=== PATIENT | female | born 1995 | race Caucasian/White ===

== ENCOUNTER 2017-01-16 23:34 | Emergency (ER) | payer MEDICAID ==
[2017-01-16 23:54] VITALS: BP 112/72; PULSE 91; RESP 20; TEMP 98.3; O2SAT 100
--- NOTE | 2017-01-17 00:28 | C.PDOC ---
History Of Present Illness 21 y/o female presents to ED with c/o vaginal discharge and vaginal itching since yesterday. Patient reports history of yeast infection and is requesting diflucan. Denies abdominal pain, dysuria, hematuria, or other associated symptoms. Time Seen by Provider: 01/16/17 23:56 Chief Complaint (Nursing): Female Genitourinary History Per: Patient History/Exam Limitations: no limitations Onset/Duration Of Symptoms: Days Current Symptoms Are (Timing): Still Present Associated Symptoms: denies: Fever, Chills, Vomiting, Urinary Symptoms Recent travel outside of the [place]: No Abnormal Vaginal Bleeding: No Past Medical History Reviewed: Historical Data, Nursing Documentation, Vital Signs Vital Signs: Last Vital Signs Temp 98.3 F 01/16/17 23:51 Pulse 91 H 01/16/17 23:51 Resp 20 01/16/17 23:51 BP 112/72 01/16/17 23:51 Pulse Ox 100 01/17/17 01:23 - Medical History PMH: No Chronic Diseases Family History: States: Unknown Family Hx - Social History Hx Tobacco Use: No Hx Alcohol Use: No Hx Substance Use: No - Immunization History Hx Tetanus Toxoid Vaccination: Yes Hx Influenza Vaccination: No Hx Pneumococcal Vaccination: No Review Of Systems Except As Marked, All Systems Reviewed And Found Negative. Constitutional: Negative for: Fever, Chills Respiratory: Negative for: Cough, Wheezing Gastrointestinal: Negative for: Nausea, Vomiting, Abdominal Pain Genitourinary: Positive for: Vaginal Discharge. Negative for: Dysuria, Hematuria, Pelvic Pain Skin: Negative for: Rash Physical Exam - Physical Exam Appears: Non-toxic, No Acute Distress Skin: Normal Color, Warm, Dry Eye(s): bilateral: Normal Inspection, PERRL Gastrointestinal/Abdominal: Soft, No Tenderness, No Guarding, No Rebound Back: Normal Inspection Pelvic: Vaginal Discharge (thick, white, at vaginal vault), No Cervical Motion Tenderness, No Adnexal Tenderness, Other (vulvar erythema) Extremity: Bilateral: Atraumatic Neurological/Psych: Oriented x3, Normal Speech, Normal Cognition ED Course And Treatment O2 Sat by Pulse Oximetry: 100 (RA) Pulse Ox Interpretation: Normal Progress Note: On reassessment, patient is resting comfortably, and is in no acute distress. Patient instructed to take prescribed medications as directed and to follow up with clinic/PMD within 1-2 days. Disposition Counseled Patient/Family Regarding: Diagnosis, Need For Followup, Rx Given - Disposition Disposition: HOME/ ROUTINE Disposition Time: 00:26 Condition: STABLE Additional Instructions: Take meds as directed Follow up with [facility] Return to ER if worse Prescriptions: Fluconazole [Diflucan] 150 mg PO ONCE #1 tab Instructions: Vulvovaginal Candidiasis (ED) - Clinical Impression Clinical Impression: Vaginal candidiasis - PA / EXTERNAL RELATIONS MANAGER / Resident Statement MD/DO has reviewed & agrees with the documentation as recorded. - Scribe Statement The provider has reviewed the documentation as recorded by the Tiffanie Donovan Provider Scribe Attestation: All medical record entries made by the Tiffanie were at my direction and personally dictated by me. I have reviewed the chart and agree that the record accurately reflects my personal performance of the history, physical exam, medical decision making, and the department course for this patient. I have also personally directed, reviewed, and agree with the discharge instructions and disposition.
== END 2017-01-17 00:35 | disposition home or self-care (01) ==
LOC: C.ER 23:34
DX: B37.3 Candidiasis of vulva and vagina (principal)

== ENCOUNTER 2017-07-14 14:00 | Emergency (ER) | payer MEDICAID ==
[2017-07-14 14:07] VITALS: BP 114/76; PULSE 83; RESP 18; TEMP 97.8; O2SAT 98
--- NOTE | 2017-07-14 14:58 | C.PDOC ---
History Of Present Illness 21 y/o female c/o vaginal discharge for 1 day that is itching and burning in vaginal area. pt reports occasional unprotected sex. pt thinks it is a yeast infection. denies dyspareunia. no abdominal pain, no urinary symptoms. Time Seen by Provider: 07/14/17 14:29 Chief Complaint (Nursing): Female Genitourinary History Per: Patient Onset/Duration Of Symptoms: Days (1) Current Symptoms Are (Timing): Still Present Severity: Moderate Quality Of Discomfort: Burning Associated Symptoms: denies: Fever, Chills, Vomiting, Constipation Alleviating Factors: None Recent travel outside of the [place]: No Past Medical History Reviewed: Historical Data, Nursing Documentation, Vital Signs Vital Signs: Last Vital Signs Temp 97.8 F 07/14/17 14:06 Pulse 83 07/14/17 14:06 Resp 18 07/14/17 14:06 BP 114/76 07/14/17 14:06 Pulse Ox 98 07/14/17 15:41 - Medical History PMH: No Chronic Diseases Family History: States: Unknown Family Hx - Social History Hx Tobacco Use: No Hx Alcohol Use: No Hx Substance Use: No - Immunization History Hx Tetanus Toxoid Vaccination: Yes Hx Influenza Vaccination: No Hx Pneumococcal Vaccination: No Review Of Systems Constitutional: Negative for: Fever, Chills Gastrointestinal: Negative for: Abdominal Pain Genitourinary: Positive for: Vaginal Discharge. Negative for: Dysuria, Frequency, Hematuria, Pelvic Pain, Rash Skin: Negative for: Rash Physical Exam - Physical Exam Appears: Non-toxic, No Acute Distress Skin: Warm, Dry Cardiovascular: Rhythm Regular, No Murmur Respiratory: Normal Breath Sounds, No Rales, No Rhonchi, No Wheezing Gastrointestinal/Abdominal: Bowel Sounds, Soft, No Tenderness Pelvic: No Vaginal Bleeding, Vaginal Discharge (copious thick white clumpy vaginal discharge, white d/c seen at introitus), No Cervical Motion Tenderness, No Cervix Open, No Adnexal Tenderness, Other (chaperoned by ROXANA Coates) ED Course And Treatment O2 Sat by Pulse Oximetry: 98 Disposition Counseled Patient/Family Regarding: Studies Performed, Diagnosis, Need For Followup, Rx Given - Disposition Referrals: [facility] [Outside] Disposition: HOME/ ROUTINE Disposition Time: 15:31 Condition: STABLE Additional Instructions: Drink a lot of water. Recommend you eat yogurts, Take diflucan and cipro. Follow up in medical clinic/customs manager for a re-evaluation and pap smear. Prescriptions: Fluconazole [Diflucan] 150 mg PO ONCE #1 tab Nitrofurantoin Macrocrystals [Macrobid] 100 mg PO BID #14 cap Instructions: Urinary Tract Infection in Women (ED), Vulvovaginal Candidiasis ( ED) Forms: [facility] ([place]er), General Discharge Instructions Print Language: GUAMANIAN - Clinical Impression Clinical Impression: Shelli vaginitis, Urinary tract infection
[2017-07-14 15:09] LABS: URINE BACTERIA OCC (<OCC); URINE BILIRUBIN NEGATIVE (NEGATIVE); URINE COLOR Amber (YELLOW); URINE GLUCOSE (UA) NORMAL (Normal); URINE KETONE NEGATIVE (NEGATIVE); URINE LEUKOCYTE ESTERASE 3+ Leu/uL (Negative); URINE PROTEIN 1+ mg/dL (NEGATIVE); URINE UROBILINOGEN NORMAL mg/dL (0.2-1.0); WBC URINE 78 /hpf (0-5)
[2017-07-14 15:10] LABS: RBC URINE 35 /hpf (0-3); URINE BLOOD 2+ (NEGATIVE)
== END 2017-07-14 15:49 | disposition home or self-care (01) ==
LOC: C.ER 14:00
DX: B37.3 Candidiasis of vulva and vagina (principal); N39.0 Urinary tract infection, site not specified